=== PATIENT | female | born 1945 | race Caucasian/White ===

== ENCOUNTER 2019-03-11 15:42 | Emergency (ER) | payer MEDICARE ==
[~2019-03-11] VITALS: Ht 157.5 cm; Wt 54.4 kg
== END 2019-03-11 19:15 | disposition home or self-care (01) ==
LOC: ED 15:42
DX: S92.352A Displaced fracture of fifth metatarsal bone, left foot, initial encounter for closed fracture (principal); Z88.0 Allergy status to penicillin; X50.1XXA Overexertion from prolonged static or awkward postures, initial encounter
CPT/HCPCS: 73630; 99283